=== PATIENT | male | born 1975 | race Caucasian/White ===

== ENCOUNTER 2019-05-10 14:47 | Emergency (ER) | payer OTHER ==
[2019-05-10] MEDS: KETOROLAC 60 MG INJ IM (16:34)
== END 2019-05-10 18:00 | disposition home or self-care (01) ==
LOC: FTE 14:47
DX: S00.83XA Contusion of other part of head, initial encounter (principal); E66.9 Obesity, unspecified; V49.49XA Driver injured in collision with other motor vehicles in traffic accident, initial encounter; Z68.44 Body mass index [BMI] 60.0-69.9, adult
CPT/HCPCS: 70450; 73030; 96372; 99285-25